=== PATIENT | female | born 1990 | race Caucasian/White ===

== ENCOUNTER 2017-08-04 05:23 | Inpatient (IN) | payer BC ==
[2017-08-04] VITALS (19 sets, daily range): BP systolic 99–148; BP diastolic 42–90; PULSE 74–105; TEMP 98.1–98.6
[~2017-08-04] VITALS: Ht 162.7 cm; Wt 85.0 kg
[~2017-08-04 05:23] MED LIST: ANTIBIOTIC; BCP TD; DEPO-PROVER400 MG/ML IM; MOTRIN 800800 MG/TAB PO; NORCO 325 MG-51 TAB PO; PERCOCET 325 MG1 TA2 PO; PRENATAL PO
[2017-08-04 06:42] LABS: BASO % 0.1 % (0.0-2.0); EOS # 0.1 (0.0-0.7); EOS % 0.7 % (0-4.0); GRAN # 6.4 (1.4-6.5); GRAN % 73.1 % (42.2-75.2); HEMATOCRIT 33.3 % (37.0-47.0); LYMPH # 1.2 (1.2-3.4); LYMPH % 13.6 % (20.0-51.0); MEAN CELL VOLUME 81 fl (80.0-100.0); MEAN CORPUSCULAR HEMOGLOBIN 27 pg (27.0-31.0); MEAN CORPUSCULAR HGB CONC 33 g/dl (33.0-37.0); MONO % 11.1 % (1.7-9.3); PLATELET COUNT 170 K/mm3 (130-400); RED BLOOD COUNT 4.09 M/mm3 (4.10-5.30); REDCELL DISTRIBUTION WIDTH-CV 14.6 % (11.5-14.5)
[2017-08-04] MEDS ORDERED: PROFERRIN ES12 MG PO (06:52)
[2017-08-05 01:20] VITALS: BP 120/77; PULSE 90; TEMP 98.1
[2017-08-05 06:24] LABS: HEMOGLOBIN 10.5 g/dl (12.5-16.0)
[2017-08-05 06:26] LABS: HEMATOCRIT 31.3 % (37.0-47.0)
[2017-08-05 07:45] VITALS: BP 117/59; PULSE 84; TEMP 97.6
[2017-08-05 17:15] VITALS: BP 120/72; PULSE 92; TEMP 98
[2017-08-05 19:15] VITALS: BP 128/76; PULSE 105; TEMP 97.9
[2017-08-06 06:55] VITALS: BP 117/77; PULSE 95; TEMP 98.2
[2017-08-06] MEDS ORDERED: MOTRIN 800800 MG/TAB PO (08:25)
[2017-08-06] MEDS ORDERED: PERCOCET 325 MG1 TA2 PO ×2 (08:26→08:28)
== END 2017-08-06 10:45 | disposition home or self-care (01) | DRG 765 ==
LOC: OB 05:23 → LDR 07:23 → OB 08-06 10:45
PROVIDERS: Obstetrics & Gynecology
PROC: 10D00Z1 Extraction of Products of Conception, Low, Open Approach (ICD-10-PCS; principal; 2017-08-04)
DX: O34.211 Maternal care for low transverse scar from previous cesarean delivery (principal); O36.0930 Maternal care for other rhesus isoimmunization, third trimester, not applicable or unspecified; Z3A.39 39 weeks gestation of pregnancy; Z37.0 Single live birth; O99.02 Anemia complicating childbirth; D57.3 Sickle-cell trait
CPT/HCPCS: J1885; J2370; J2405; J2590; J2791; J7120

== ENCOUNTER 2020-06-16 23:12 | Emergency (ER) | payer BC, OTHER ==
[~2020-06-16] VITALS: Ht 162.6 cm; Wt 84.1 kg
[~2020-06-16 23:12] MED LIST changes: +PROFERRIN ES12 MG PO
[2020-06-16 23:16] VITALS: TEMP 98
[2020-06-17 00:06] LABS: BASO % 0.2 % (0.0-2.0); EOS % 0.1 % (0-4.0); GRAN # 8.8 (1.4-6.5); GRAN % 85.3 % (42.2-75.2); HEMATOCRIT 35.2 % (37.0-47.0); HEMOGLOBIN 11.7 g/dl (12.5-16.0); LYMPH # 0.7 (1.2-3.4); LYMPH % 7.1 % (20.0-51.0); MEAN CELL VOLUME 90 fl (80.0-100.0); MEAN CORPUSCULAR HEMOGLOBIN 30 pg (27.0-31.0); MEAN CORPUSCULAR HGB CONC 33 g/dl (33.0-37.0); MEAN PLATELET VOLUME 11.1 fl (7.4-10.4); MONO # 0.7 (0.1-0.6); MONO % 6.4 % (1.7-9.3); PLATELET COUNT 161 K/mm3 (130-400); REDCELL DISTRIBUTION WIDTH-CV 13.8 % (11.5-14.5)
[2020-06-17 00:17] LABS: ALBUMIN 3.4 gm/dL (3.5-5.0); BILIRUBIN,TOTAL 1.4 mg/dL (0.0-1.0); CALCIUM 8.9 mg/dL (8.4-10.2); CREATININE, serum 0.49 (0.52-1.25); POTASSIUM 3.4 mmol/L (3.4-5.0); TOTAL PROTEIN 6.3 gm/dL (6.4-8.2)
[2020-06-17 00:27] LABS: COLLECTION METHOD CLEAN CATCH
[2020-06-17 00:32] LABS: MUCOUS Present /lpf; PH 6 (5-8); URINE APPEARANCE Hazy; URINE BACTERIA None Seen /hpf; URINE BILIRUBIN Negative (NEGATIVE); URINE BLOOD Negative (NEGATIVE); URINE COLOR Yellow; URINE GLUCOSE Negative (NEGATIVE); URINE KETONE 2+ (NEGATIVE); URINE LEUKOCYTE ESTERASE Negative (NEGATIVE); URINE NITRATE Negative (NEGATIVE); URINE PROTEIN(semi-quant) Negative (NEGATIVE); URINE RBC 0-2 /hpf; URINE UROBILINOGEN Negative (NEGATIVE)
[2020-06-17 01:18] VITALS: BP 127/74; PULSE 107
== END 2020-06-17 01:12 | disposition home or self-care (01) ==
LOC: COL.ER 23:12
PROVIDERS: Physician Assistant
DX: O21.9 Vomiting of pregnancy, unspecified (principal); Z3A.30 30 weeks gestation of pregnancy; Z20.822 Contact with and (suspected) exposure to COVID-19; Z88.1 Allergy status to other antibiotic agents; Z88.6 Allergy status to analgesic agent; Z88.0 Allergy status to penicillin
CPT/HCPCS: J2765; J7030

== ENCOUNTER 2020-08-13 10:37 | Inpatient (IN) | payer BC, OTHER ==
[2020-08-13] VITALS (37 sets, daily range): BP systolic 109–189; BP diastolic 62–125; PULSE 69–111; TEMP 97.6–98.5
[~2020-08-13] VITALS: Ht 162.7 cm; Wt 90.5 kg
--- NOTE | 2020-08-13 10:43 | NUR ---
PT ARRIVES AMBULATORY TO UNIT, ASSISTED INTO RESTROOM TO DON GOWN AND AMBULATES TO BED, FHR AND TOCO MONITORING PLACED AND TRACING, BP ELEVATED UPON ARRIVAL, ORDERS FOR SERIAL BP'S, WILL BEGIN MONITORING Q15 MINUTES AND UPDATE ROLES WITH PRESSURES, PT STABLE BUT TEARFUL, REPORTS STRESS FROM HOME AND "I SURE AM NOT PLANNING ON HAVING A BABY TODAY," PT REASSURED SHE IS BEING MONITORED CLOSELY, OFFERED WATER AND WARM BLANKET 1107: NOTIFIED OF CATEGORY 1 FHR TRACING AND CONTINUED BP'S, SEE PHYS.NOTIFICATION FOR FURTHER ORDERS 1130: IV PLACED, LABS OBTAINED AND MEDICATIONS ADMINISTERED INCLUDING IV LABETALOL, PLACED PT ON Q5MIN BP'S TO MONITOR RESPONSE TO IV MEDICATION, SEE EMAR
[2020-08-13 11:46] LABS: COLLECTION METHOD CLEAN CATCH
[2020-08-13 11:53] LABS: HEMOGLOBIN 10.6 g/dl (12.5-16.0); MEAN CELL VOLUME 93 fl (80.0-100.0); MEAN CORPUSCULAR HEMOGLOBIN 32 pg (27.0-31.0); MEAN CORPUSCULAR HGB CONC 35 g/dl (33.0-37.0); MEAN PLATELET VOLUME 12.9 fl (7.4-10.4); PH 6 (5-8); PLATELET COUNT 120 K/mm3 (130-400); RED BLOOD COUNT 3.28 M/mm3 (4.10-5.30); REDCELL DISTRIBUTION WIDTH-CV 15.3 % (11.5-14.5); URINE APPEARANCE Hazy; URINE BACTERIA None Seen /hpf; URINE BILIRUBIN Negative (NEGATIVE); URINE BLOOD Negative (NEGATIVE); URINE COLOR Yellow; URINE GLUCOSE Negative (NEGATIVE); URINE KETONE Negative (NEGATIVE); URINE LEUKOCYTE ESTERASE Negative (NEGATIVE); URINE NITRATE Negative (NEGATIVE); URINE PROTEIN(semi-quant) 2+ (NEGATIVE); URINE RBC 0-2 /hpf; URINE UROBILINOGEN Negative (NEGATIVE); URINE WBC 0-2 /hpf
--- NOTE | 2020-08-13 11:55 | NUR ---
1155- LR 250ml bolus complete. 1225- Dr. Ramirez called and notified labs resulted. Provider states she is in building and en route to unit. Will review labs at that time. See physician notification. 1230- Roles to bedside and reviews POC with patient and spouse who verbalize understanding. Discusses magnesium sulfate therapy. Decision at this time to proceed with repeat section. LR bolus infusing. 1245- 2nd IV site to left hand. 1252- Magnesium sulfate 4mg bolus initiated. See EMAR. Patient educated on side effects. RN remains at bedside. Alex Bradley AIR CONDITIONING MECHANIC to bedside. 1307- Magnesium sulfate 2g/hr initiated. See EMAR. COVID swab obtained. 1310- EFM off and patient to OR suite via bed.
[2020-08-13 12:02] LABS: ALBUMIN 2.9 gm/dL (3.5-5.0); BILIRUBIN,TOTAL 1.2 mg/dL (0.0-1.0); CALCIUM 8.7 mg/dL (8.4-10.2); CREATININE, serum 0.54 (0.52-1.25); POTASSIUM 3.7 mmol/L (3.4-5.0); TOTAL PROTEIN 5.7 gm/dL (6.4-8.2)
[2020-08-13 12:16] LABS: HEMATOCRIT 30.6 % (37.0-47.0)
[2020-08-13 12:21] LABS: BAND 2 % (0-10); LYMPHOCYTE 16 % (20.0-51.0); NEUTROPHILS 72 % (42.0-75.2)
[2020-08-13 12:23] LABS: ANISOCYTOSIS 1+; PLATELET ESTIMATE DECREASED (NORMAL)
--- NOTE | 2020-08-13 14:20 | NUR ---
1420- Patient to PACU via bed. Monitors applied. Fundus firm, and midline. Bleeding moderate. [place] size clot expressed. 1430- Roles to bedside. Updated on lochia. RN to continue to monitor. RN to call with BP >160/100. 1450- Monitors off and patient to LDR4. Family oriented to POC. 1530- [place] size clot expressed. Lochia moderate. Roles updated, orders received. See physician notification. 1630- Patient repositioned in bed. Pads changed and ashley care provied. 1640- Roles updated on patient, and current bps. See physician notification.
--- NOTE | 2020-08-13 18:30 | NUR ---
Bedside shift report received from SUNIL Starks. Line check complete. Volume on IV pumps cleared. Lazaro catheter emptied. Mag check done. Plan of care reviewed with patient. Family member supportive at bedside.
[2020-08-14] VITALS (23 sets, daily range): BP systolic 120–142; BP diastolic 53–89; PULSE 84–105; TEMP 97.4–98.6
--- NOTE | 2020-08-14 07:35 | NUR ---
Note pt O2 Sat 89% on 2L/NC, increased to 91% after instruction to take big deep breaths. Bumped up to 3L/NC, O2 Sat 94%. Will continue to monitor.
[2020-08-14 07:58] LABS: BASO % 0.1 % (0.0-2.0); EOS % 0.1 % (0-4.0); GRAN # 10.9 (1.4-6.5); GRAN % 77.6 % (42.2-75.2); LYMPH # 1.9 (1.2-3.4); LYMPH % 13.3 % (20.0-51.0); MEAN CELL VOLUME 95 fl (80.0-100.0); MEAN CORPUSCULAR HGB CONC 34 g/dl (33.0-37.0); MEAN PLATELET VOLUME 12.1 fl (7.4-10.4); MONO # 1.1 (0.1-0.6); MONO % 7.8 % (1.7-9.3); PLATELET COUNT 123 K/mm3 (130-400); RED BLOOD COUNT 2.79 M/mm3 (4.10-5.30); REDCELL DISTRIBUTION WIDTH-CV 15.5 % (11.5-14.5)
[2020-08-14 08:03] LABS: HEMATOCRIT 26.5 % (37.0-47.0); HEMOGLOBIN 8.9 g/dl (12.5-16.0); MEAN CORPUSCULAR HEMOGLOBIN 32 pg (27.0-31.0)
[2020-08-14 08:13] LABS: ALBUMIN 2.6 gm/dL (3.5-5.0); BILIRUBIN,TOTAL 0.8 mg/dL (0.0-1.0); CALCIUM 7.2 mg/dL (8.4-10.2); CREATININE, serum 0.64 (0.52-1.25); POTASSIUM 3.8 mmol/L (3.4-5.0)
[2020-08-14 08:27] LABS: MAGNESIUM 5.8 mg/dL (1.6-2.3)
--- NOTE | 2020-08-14 08:28 | NUR ---
Mg level 5.8, as called by lab corporate sales representative @ this time, note therapeutic level. Will await Dr.Roles zohreh roberts for further orders.
--- NOTE | 2020-08-14 08:42 | NUR ---
Roles in for am rounds. Labs reviewed. Assessment complete.
--- NOTE | 2020-08-14 08:46 | NUR ---
MgSO4 shut off @ this time per 's verbal instruction. IV to left hand flushed, to INT. Incentive spirometry begun, patient able to raise to 1200 mL, with goal of 2400. Tearful with inspiration, related to pain in upper right quadrant. Weak cough noted.
--- NOTE | 2020-08-14 08:50 | NUR ---
O2 decreased to 2L/min per NC following incentive spirometry efforts. Will continue to taper down.
--- NOTE | 2020-08-14 09:30 | NUR ---
O2 decreased to 1L/min per NC.
--- NOTE | 2020-08-14 10:36 | NUR ---
Nasal canula removed @ this time. Patient assisted up to BR @ this time. Steady gait noted. Denies any dizziness, lightheadedness, nausea. Ashley care provided. Mesh underwear, ashley pad applied. Ambulates to post room 211 without difficulty. Linens changed out on bed. Patient belongings transferred to 211.
--- NOTE | 2020-08-14 17:10 | NUR ---
1710- O2 sat check while Pt sleeping 92-93% on room air.
--- NOTE | 2020-08-14 18:30 | NUR ---
Report recieved. Resting in bed at this time while attempting to breastfeed. Updated whiteboard and reviewed POC. Requests a shower and for IVs to be removed at this time. Informed this nurse would speak with phsycian following assessment.
[2020-08-15 02:10] VITALS: BP 150/90
[2020-08-15 02:40] VITALS: BP 150/88; PULSE 96; TEMP 98
--- NOTE | 2020-08-15 02:42 | NUR ---
Dr. Smyth on the unit and updated on pt VS. To continue to monitor, will evaulate them in the morning.
[2020-08-15] MEDS ORDERED: MOTRIN 800800 MG/TAB PO (04:49)
[2020-08-15] MEDS ORDERED: PERCOCET 325 MG1 TA2 PO (04:49)
[2020-08-15] MEDS ORDERED: PROCARDIA XL 6060 MG PO (04:50)
[2020-08-15 06:51] LABS: MEAN CELL VOLUME 98 fl (80.0-100.0); MEAN CORPUSCULAR HGB CONC 33 g/dl (33.0-37.0); PLATELET COUNT 142 K/mm3 (130-400); RED BLOOD COUNT 2.88 M/mm3 (4.10-5.30)
[2020-08-15 07:02] LABS: ALBUMIN 2.8 gm/dL (3.5-5.0); BILIRUBIN,TOTAL 0.5 mg/dL (0.0-1.0); CALCIUM 8.6 mg/dL (8.4-10.2); CREATININE, serum 0.63 (0.52-1.25); POTASSIUM 3.8 mmol/L (3.4-5.0); TOTAL PROTEIN 5.4 gm/dL (6.4-8.2)
[2020-08-15 07:05] LABS: HEMATOCRIT 28.3 % (37.0-47.0); HEMOGLOBIN 9.2 g/dl (12.5-16.0); MEAN CORPUSCULAR HEMOGLOBIN 32 pg (27.0-31.0)
[2020-08-15 07:45] VITALS: BP 138/75; PULSE 87; TEMP 98.1
== END 2020-08-15 12:30 | disposition home or self-care (01) | DRG 788 ==
LOC: LDRO 10:37 → LDR 10:38 → LDRO 12:53 → LDR 12:54 → OB 12:54
PROVIDERS: ADMIT Obstetrics & Gynecology
PROC: 10D00Z1 Extraction of Products of Conception, Low, Open Approach (ICD-10-PCS; principal; 2020-08-13)
DX: O14.23 HELLP syndrome (HELLP), third trimester (principal); O14.13 Severe pre-eclampsia, third trimester; O34.211 Maternal care for low transverse scar from previous cesarean delivery; O99.02 Anemia complicating childbirth; D57.3 Sickle-cell trait; O99.03 Anemia complicating the puerperium; D50.0 Iron deficiency anemia secondary to blood loss (chronic); Z37.0 Single live birth; Z3A.37 37 weeks gestation of pregnancy; Z20.822 Contact with and (suspected) exposure to COVID-19; Z88.0 Allergy status to penicillin; Z88.5 Allergy status to narcotic agent
CPT/HCPCS: J0690; J1100; J1885; J2405; J2550; J2590; J3475; J7120

== ENCOUNTER 2020-09-08 08:53 | Day surgery (SDC) | payer BC, OTHER ==
[~2020-09-08] VITALS: Ht 162.6 cm; Wt 77.1 kg
[~2020-09-08 08:53] MED LIST changes: +PROCARDIA XL 6060 MG PO
[2020-09-08 09:51] VITALS: BP 139/80; PULSE 82; TEMP 98.1
[2020-09-08 12:18] VITALS: BP 125/70; PULSE 85; TEMP 98.2
--- NOTE | 2020-09-08 12:20 | NUR ---
PATIENT TRANSPORTED PER CART FROM OR TO BAY 2 ACCOMPANIED BY OR STAFF. MONITORS APPLIED VSS ON ROOM AIR. PATIENT TALKING . DRESSING TO RIGHT HAND CDI. IN ROOM VERBAL REPORT RECEIVED.
[2020-09-08 12:30] VITALS: BP 116/74; PULSE 84
--- NOTE | 2020-09-08 12:30 | NUR ---
VSS ON ROOM AIR. PATEINT EATING A MUFFIN AND DRINKING SPRITE WITHOUT PROBLEMS. PATIENT DENIES NAUSEA AND DISCOMFORT. TALKING TO . DRESSING TO FINGERS TO HAND, CDI.
[2020-09-08] MEDS ORDERED: PERCOCET 325 MG1 TA2 PO (12:35)
[2020-09-08] MEDS ORDERED: MOTRIN 600600 MG/TAB PO (12:35)
[2020-09-08 12:45] VITALS: BP 124/73; PULSE 86
--- NOTE | 2020-09-08 12:45 | NUR ---
VSS ON ROOM AIR. PATIENT TOLERATES FOOD AND DRINK WITHOUT PROBLEMS. DENIES DISCOMFORT AND NAUSEA.
[2020-09-08 13:00] VITALS: BP 123/63; PULSE 91
--- NOTE | 2020-09-08 13:00 | NUR ---
VSS ON ROOM AIR. DRESSING TO PINKY FINGER TO RIGHT HAND IS CDI. REINFORCED COBAN WITH TAPE. AND PATIEN TALK. 1305 IV DC'D WITH CATHETER TIP INTACT. PRESSURE AND BANDAGE APPLIED.
--- NOTE | 2020-09-08 13:10 | NUR ---
DISCHARGE INSTRUCTIONS GIVEN VERBAL AND DISCHARGE PACKET PROVIDED. PATIENT INFORMED THAT DR VILLAFANA SENT RX TO PREF[facility]ED [facility]. QUESTIONS ANSWERED AND PATIENT VOICED UNDERSTANDING. SIGNED INSTRUCTIONS. PATIENT CHANGES INTO STREET CLOTHES. 2626 PATIENT DISCHARGED PER WHEEL CHAIR ACCOMPANIED BY AMB RN TO PRIVATE VECHILE DRIVEN BY .
== END 2020-09-08 13:18 | disposition home or self-care (01) ==
LOC: SDCO 08:53
DX: L98.0 Pyogenic granuloma (principal); I10 Essential (primary) hypertension; Z83.3 Family history of diabetes mellitus; Z79.899 Other long term (current) drug therapy; Z80.41 Family history of malignant neoplasm of ovary; Z20.822 Contact with and (suspected) exposure to COVID-19
CPT/HCPCS: J0690; J2250; J2704; J7120